=== PATIENT | female | born 1990 | race Caucasian/White ===

== ENCOUNTER 2016-11-13 18:06 | Emergency (ER) | payer OTHER ==
[2016-11-13] MEDS ORDERED: ALBUTEROL SULFATE 2.5 MG/0.5 ML INH NEB SOLN As Ordered ONE (20:38)
[2016-11-13 20:42] LABS: BASO % 0.2 % (0.0-1.0); EOS # 0.2 K/mm3 (0.0-0.50); EOS % 2.2 % (0.0-3.0); LARGE UNSTAINED CELL # 0.1 K/mm3 (0.0-0.4); LARGE UNSTAINED CELL % 0.6 % (0.0-4.0); LYMPH # 0.8 K/mm3 (1.5-6.5); MEAN CORPUSCULAR HEMOGLOBIN 28.6 pg (27.0-33.0); MEAN CORPUSCULAR HGB CONC 33.4 g/dl (32.0-36.5); MEAN CORPUSCULAR VOLUME 85.6 fl (80.0-96.0); MONO # 0.4 K/mm3 (0.0-0.8); MONO % 3.5 % (0.0-5.0); NEUTROPHILS # 8.9 K/mm3 (1.8-7.7); NEUTROPHILS % 85.6 % (36.0-66.0); PLATELET COUNT, AUTOMATED 214 k/mm3 (150-450); RED CELL DISTRIBUTION WIDTH 12.3 % (11.5-14.5); WHITE BLOOD COUNT 10.3 K/mm3 (4.0-10.0)
[2016-11-13 21:11] LABS: ANION GAP 7 MEQ/L (8-16); BLOOD UREA NITROGEN 4 MG/DL (7-18); CALCIUM LEVEL 9.2 MG/DL (8.5-10.1); CARBON DIOXIDE LEVEL 28 MEQ/L (21-32); CHLORIDE LEVEL 108 MEQ/L (98-107); CREATININE FOR GFR 0.73 MG/DL (0.55-1.02); GLOMERULAR FILTRATION RATE > 60.0 (>60); GLUCOSE, FASTING 87 MG/DL (70-105); POTASSIUM SERUM 3.9 MEQ/L (3.5-5.1); SODIUM LEVEL 143 MEQ/L (136-145)
[2016-11-13] MEDS ORDERED: ALBUTEROL 90 MCG/ACT 8GM HFA INHALER As Ordered ONE (22:27)
[2016-11-13] MEDS ORDERED: AZITHROMYCIN 250 MG TAB As Ordered ONE (22:27)
--- NOTE | 2016-11-13 22:36 | EDDOCDS ---
Physician Documentation [facility] Name: Rachelle Pagan Age: 26 yrs Sex: Female : 1990 Arrival Date: 11/13/2016 Time: 18:06 Bed I4 / M4 Private MD: GEMMA Osborn Disposition: 11/13/16 22:25 Discharged to Home/Self Care. Impression: Acute bronchitis. - Condition is Stable. - Discharge Instructions: Acute Bronchitis. - Prescriptions for Zithromax 250 mg Oral Tablet - take 1 tablet by ORAL route once daily start tomorrow; 4 tablet. Albuterol Sulfate 90 mcg/actuation Inhalation HFA Aerosol Inhaler - inhale 2 puff by INHALATION route every 4 hours As needed; 1 Inhaler. - Medication Reconciliation, Local Pharmacy Hours form. - Follow up: GEMMA Osborn; When: 1 - 2 days; Reason: Recheck today's complaints, Continuance of care. - Problem is new. - Symptoms have improved. Historical: - Allergies: SULFA (SULFONAMIDES); - Home Meds: 1. ibuprofen 600 mg Oral tab 1 tab 4 times per day 2. Vitamin D Oral 1,000 unit daily 3. Vitamin B-12 1,000 mcg Oral lozg 4. tumeric daily - PMHx: none; - PSHx: egd; - Social history: Smoking status: Patient states was never smoker of tobacco. No barriers to communication noted, The patient speaks fluent Belarusian, Speaks appropriately for age. - Family history: Not pertinent. - : The pt / caregiver states he / she is not on anticoagulants. Home medication list is obtained from the patient. - Exposure Risk Screening:: None identified. 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 6 in. (167.64 cm) (R); Pain 0/10; 22:35 BP 116 / 57; Pulse 75; Resp 20 S; Temp 98.1(O); Pulse Ox 100% on R/A; Pain 2/10; ms2 18:07 Body Mass Index 21.79 (61.23 kg, 167.64 cm) elp MDM: 20:14 -Blood Culture (Adults Only), peripheral from different site, or from device/port/PICC ck7 etc. if present ordered. 20:14 Albuterol 2.5 mg Nebulizer once ordered. ck7 20:14 Call Respiratory ordered. ck7 20:15 Chest, 2 View (pa\E\lat) Ordered. EDMS 20:15 CBC with Diff Ordered. EDMS 20:15 MED Profile Ordered. EDMS 20:15 -Blood Culture Ordered. EDMS 20:15 Cardiac Marker Panel Ordered. EDMS 20:15 D-Dimer Quant Ordered. EDMS 20:15 ECG WITH READING ER PHYS+CARDIAG ordered. EDMS 20:16 -Blood Culture (Adults Only), peripheral from different site, or from device/port/PICC ajs etc. if present complete. 20:16 Strep Screen, Nursing ordered. ck7 20:17 BLOOD CULTURES Ordered. EDMS 20:32 Call Respiratory complete. ajs 20:45 GATS (NEGATIVE STREP SCREEN) Ordered. EDMS 20:49 Financial registration complete. ks16 20:58 [facility] Payment Agreement was scanned into [employer] and attached to record. ks16 22:00 CBC with Diff Reviewed. ck7 22:00 MED Profile Reviewed. ck7 22:00 Cardiac Marker Panel Reviewed. ck7 22:00 D-Dimer Quant Reviewed. ck7 22:25 azithromycin 500 mg PO once ordered. ck7 22:25 Ventolin Inhaler 2 puffs Inhalation once ordered. ck7 Administered Medications: 20:42 Drug: Albuterol 2.5 mg [albuterol sulfate 2.5 mg/0.5 mL solution for nebulization (0.5 rs5 mL)] Route: Nebulizer; 22:34 Drug: azithromycin 500 mg [azithromycin 250 mg tablet (2 tabs)] Route: PO; ms2 22:34 Drug: Ventolin 2 puffs [Ventolin HFA 90 mcg/actuation aerosol inhaler (2 puffs)] {Note: ms2 inhaler dispensed to pt --pt declines to use presently.} Route: Inhalation; Signatures: Dispatcher Med[employer] EDMS Sebastian King RN RN ms2 Trixie Alvarez ajManuel Rodríguez RPA-C RPA-Cck7 Manas Allen,RN RN Kajal Staley, Reg Reg ks16 Tigre Hayward RT rs5 The chart was reviewed and I authenticate all verbal orders and agree with the evaluation and treatment provided.Attachments: 20:58 [facility] Payment Agreement ks16 MTDD
--- NOTE | 2016-11-13 22:36 | EDDOCDS ---
Nurse's Notes [facility] Name: Rachelle Pagan Age: 26 yrs Sex: Female : 1990 Arrival Date: 11/13/2016 Time: 18:06 Bed I4 / M4 Private MD: Irena [facility] Diagnosis: Acute bronchitis Presentation: 11/13 18:14 Presenting complaint: Patient states: Patient reports sore throat yesterday but having jmb difficulty breathing with fever and chills today. History of pneumonia. Adult Sepsis Screening: The patient does not have new or worsening altered mentation. Patient's respiratory rate is less than 22. Systolic blood pressure is greater than 100. Patient has a qSOFA score of 0- Negative Sepsis Screen. Suicide/Homicide risk assessment- the patient denies having any suicidal and/or homicidal ideations and does not present with any other emotional, behavioral or mental health complaints. 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 Transition of care: patient was not received from another setting of care. 18:14 Acuity: IVY Level 4 [facility] 18:14 Method Of Arrival: Walkin/Carried/Asstd [facility] Triage Assessment: 18:16 General: Appears in no apparent distress, Behavior is appropriate for age, cooperative. b Pain: Denies pain. HIV screening NA for this visit Offered previously. Neurological: Level of Consciousness is awake, alert, obeys commands, Oriented to person, place, time. Respiratory: Onset: The symptoms/episode began/occurred gradually, Airway is patent Respiratory effort is even, Respiratory pattern is regular. Derm: Skin is pink, warm & dry. Musculoskeletal: Range of motion intact in all extremities. 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 ibuprofen 600 mg Oral tab 1 tab 4 times per day 2. Vitamin D Oral 1,000 unit daily 3. Vitamin B-12 1,000 mcg Oral lozg 4. tumeric daily - PMHx: none; - PSHx: egd; - Social history: Smoking status: Patient states was never smoker of tobacco. No barriers to communication noted, The patient speaks fluent Bahraini, Speaks appropriately for age. - Family history: Not pertinent. - : The pt / caregiver states he / she is not on anticoagulants. Home medication list is obtained from the patient. - Exposure Risk Screening:: None identified. Screenin:50 Screening information is obtained from the patient. Fall risk: No risks identified. af2 Assistance ADL's: requires no assistance with activities of daily living. Abuse/DV Screen: The patient / caregiver reports he/she is: not in a situation that causes fear, pain or injury. Nutritional screening: No deficits noted. Advance Directives: Currently, there is no health care proxy. home support is adequate. Assessment: 20:49 General: Appears in no apparent distress, comfortable, Behavior is appropriate for age, af2 cooperative. Neurological: Level of Consciousness is awake, alert, obeys commands. Cardiovascular: Heart tones S1 S2 present. Respiratory: Airway is patent Respiratory effort is even, unlabored, Breath sounds with wheezes bilaterally. Derm: Skin is normal. 21:53 General: Appears in no apparent distress, comfortable, Behavior is appropriate for age, af2 cooperative. Neurological: Level of Consciousness is awake, alert. Respiratory: Airway is patent Respiratory effort is even, unlabored. Derm: No deficits noted. 22:34 Adult Sepsis Screening: Patient has new or worsening altered mentation (1 point). ms2 Patient's respiratory rate is less than 22. Systolic blood pressure is greater than 100. Patient has a qSOFA score of 0- Negative Sepsis Screen. General: Appears in no apparent distress. Neurological: Level of Consciousness is awake, alert, obeys commands. Respiratory: No deficits noted. Airway is patent Respiratory effort is even, unlabored. Derm: Skin is pink, warm & dry. Musculoskeletal: Range of motion intact in all extremities. Vital Signs: 18:07 BP 135 / 73; Pulse 96; Resp 18; Temp 98.1(O); Pulse Ox 100% on R/A; Weight 61.23 kg elp (R); Height 5 ft. 6 in. (167.64 cm) (R); Pain 0/10; 22:35 BP 116 / 57; Pulse 75; Resp 20 S; Temp 98.1(O); Pulse Ox 100% on R/A; Pain 2/10; ms2 18:07 Body Mass Index 21.79 (61.23 kg, 167.64 cm) elp Vitals: 18:07 Log In Time: November 13, 2016 at 18:05. elp 20:44 Strep Screen is obtained and tested: Negative, a GATSNEG culture is ordered in [facility] af2 and sent. ED Course: 18:07 Patient visited by Donna Fortune PCA. elp 18:07 Irena [facility] is Private Physician. elp 18:07 Patient moved to Waiting elp 18:08 Patient visited by Donna Fortune PCA. elp 18:08 Patient moved to Pre RCE elp 18:15 Triage Initiated jmb 19:33 Patient moved to Triage 2 ms18 20:00 Manuel Howell RPA-C is PHCP. ck7 20:00 Mau Moore DO is Attending Physician. ck7 20:00 Patient visited by Manuel Howell RPA-C. ck7 20:15 Patient moved to I4 / M4 jmb 20:30 Patient visited by Manuel Howell RPA-C. ck7 20:32 D-Dimer Quant Sent. ajs 20:32 MED Profile Sent. ajs 20:32 CBC with Diff Sent. ajs 20:32 -Blood Culture Sent. ajs 20:43 Patient visited by Trixie Alvarez. ajs 20:43 BLOOD CULTURES Sent. ajs 20:43 EKG done. (by ED staff). Reviewed by Manuel BIRD. ajs 20:50 Patient visited by Caroline Gardner RN. af2 20:50 GATS (NEGATIVE STREP SCREEN) Sent. ajs 20:58 [facility] Payment Agreement was scanned into [employer] and attached to record. ks16 21:24 Patient visited by Caroline Gardner RN. af2 21:53 Patient visited by Caroline Gardner RN. af2 22:24 Osborn, [facility] is Referral Physician. ck7 22:25 Patient visited by Sebastian King,JANICE. ms2 22:33 Patient visited by Sebastian King,JANICE. ms2 22:35 The patient / caregiver is instructed regarding the plan of care and ED course. ms2 22:35 No IV's were initiated during this patient's visit. No procedures done that require ms2 assistance. Administered Medications: 20:42 Drug: Albuterol 2.5 mg [albuterol sulfate 2.5 mg/0.5 mL solution for nebulization (0.5 rs5 mL)] Route: Nebulizer; 22:34 Drug: azithromycin 500 mg [azithromycin 250 mg tablet (2 tabs)] Route: PO; ms2 22:34 Drug: Ventolin 2 puffs [Ventolin HFA 90 mcg/actuation aerosol inhaler (2 puffs)] {Note: ms2 inhaler dispensed to pt --pt declines to use presently.} Route: Inhalation; RT: 20:42 Initial Med Neb Given as ordered Patient was instructed and evaluated on procedure rs5 Patient tolerated procedure well without adverse effect. Respiratory: Respiratory effort is even, unlabored, Respiratory pattern is regular symmetrical, Breath sounds are diminished bilaterally. Reports cough that is non-productive. Order Results: Lab Order: CBC with Diff; SPEC'M 11/13/16 20:32 Test: WHITE BLOOD COUNT; Value: 10.3; Range: 4.0-10.0; Abnormal: Above high normal; Units: K/mm3; Status: F Test: RED BLOOD COUNT; Value: 4.65; Range: 4.00-5.40; Units: M/mm3; Status: F Test: HEMOGLOBIN; Value: 13.3; Range: 12.0-16.0; Units: g/dl; Status: F Test: HEMATOCRIT; Value: 39.8; Range: 36.0-47.0; Units: %; Status: F Test: MEAN CORPUSCULAR VOLUME; Value: 85.6; Range: 80.0-96.0; Units: fl; Status: F Test: MEAN CORPUSCULAR HEMOGLOBIN; Value: 28.6; Range: 27.0-33.0; Units: pg; Status: F Test: MEAN CORPUSCULAR HGB CONC; Value: 33.4; Range: 32.0-36.5; Units: g/dl; Status: F Test: RED CELL DISTRIBUTION WIDTH; Value: 12.3; Range: 11.5-14.5; Units: %; Status: F Test: PLATELET COUNT, AUTOMATED; Value: 214; Range: 150-450; Units: k/mm3; Status: F Test: NEUTROPHILS %; Value: 85.6; Range: 36.0-66.0; Abnormal: Above high normal; Units: %; Status: F Test: LYMPH %; Value: 8.0; Range: 24.0-44.0; Abnormal: Below low normal; Units: %; Status: F Test: MONO %; Value: 3.5; Range: 0.0-5.0; Units: %; Status: F Test: EOS %; Value: 2.2; Range: 0.0-3.0; Units: %; Status: F Test: BASO %; Value: 0.2; Range: 0.0-1.0; Units: %; Status: F Test: LARGE UNSTAINED CELL %; Value: 0.6; Range: 0.0-4.0; Units: %; Status: F Test: NEUTROPHILS #; Value: 8.9; Range: 1.8-7.7; Abnormal: Above high normal; Units: K/mm3; Status: F Test: LYMPH #; Value: 0.8; Range: 1.5-6.5; Abnormal: Below low normal; Units: K/mm3; Status: F Test: MONO #; Value: 0.4; Range: 0.0-0.8; Units: K/mm3; Status: F Test: EOS #; Value: 0.2; Range: 0.0-0.50; Units: K/mm3; Status: F Test: BASO #; Value: 0.0; Range: 0.0-0.2; Units: K/mm3; Status: F Test: LARGE UNSTAINED CELL #; Value: 0.1; Range: 0.0-0.4; Units: K/mm3; Status: F Lab Order: [facility]; SPEC'M 11/13/16 20:32 Test: GLUCOSE, FASTING; Value: 87; Range: 70-105; Units: MG/DL; Status: F Test: BLOOD UREA NITROGEN; Value: 4; Range: 7-18; Abnormal: Below low normal; Units: MG/DL; Status: F Test: CREATININE FOR GFR; Value: 0.73; Range: 0.55-1.02; Units: MG/DL; Status: F Test: GLOMERULAR FILTRATION RATE; Value: > 60.0; Range: >60; Status: F Test: SODIUM LEVEL; Value: 143; Range: 136-145; Units: MEQ/L; Status: F Test: POTASSIUM SERUM; Value: 3.9; Range: 3.5-5.1; Units: MEQ/L; Status: F Test: CHLORIDE LEVEL; Value: 108; Range: 98-107; Abnormal: Above high normal; Units: MEQ/L; Status: F Test: CARBON DIOXIDE LEVEL; Value: 28; Range: 21-32; Units: MEQ/L; Status: F Test: ANION GAP; Value: 7; Range: 8-16; Abnormal: Below low normal; Units: MEQ/L; Status: F Test: CALCIUM LEVEL; Value: 9.2; Range: 8.5-10.1; Units: MG/DL; Status: F Test Note: ; Units are mL/min/1.73 m2 Chronic Kidney Disease Staging per NKF: Stage I & II GFR >=60 Normal to Mildly Decreased Stage III GFR 30-59 Moderately Decreased Stage IV GFR 15-29 Severely Decreased Stage V GFR <15 Very Little GFR Left ESRD GFR <15 on MORTGAGE LOAN FUNDER Lab Order: Cardiac Marker Panel; SPEC'M 11/13/16 20:32 Test: CPK CREATINE PHOSPHOKINASE; Value: 336; Range: 26-192; Abnormal: Above high normal; Units: U/L; Status: F Test: CK-MB VALUE MASS; Value: 1.0; Range: 0.0-3.6; Units: NG/ML; Status: F Test: MB/CK RELATIVE INDEX; Value: 0.29; Range: < OR =4; Status: F Test: TROPONIN I; Value: < 0.02; Range: < 0.10; Units: NG/ML; Status: F Test Note: ; DIAGNOSIS CRITERIA MMB ng/ml Relative Index (RI) NON-AMI < or = 5 N/A KHALIL ZONE > 5 < or = 4 AMI > 5 > 4 Lab Order: D-Dimer Quant; SPEC'M 11/13/16 20:32 Test: D-DIMER QUANT; Value: < 270.0; Range: <500; Units: ng/ml; Status: F Outcome: 22:25 Discharge ordered by Provider. ck7 22:35 Discharge Assessment: patient administered narcotics - no. The following High Risk ms2 Discharge criteria are identified: None. Discharged to home ambulatory. Condition: stable. Discharge instructions given to patient, Instructed on discharge instructions, follow up and referral plans. medication usage, Demonstrated understanding of instructions, medications, Pt was receptive of discharge instructions/ teaching. Prescriptions given X 2 faxed. No special radiology studies were completed. Property sent home with patient. 22:36 Patient left the ED. ms2 Signatures: Sebastian King,RN RN ms2 Trixie Alvarez Richard,RT RT rs5 Manuel Howell, RPA-C RPA-Cck7 Donna Fortune, JADA LIBRARY ATTENDANT Manas Adams,RN RN Marlee Snow RN RN ms18 Caroline GardnerRN RN af2 Kajal Gamino, Reg Reg ks16 MTDD
--- NOTE | 2016-11-14 07:35 | ECGEPIP ---
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
--- NOTE | 2016-11-14 08:25 | REP ---
Clinical: Shortness of breath . Comparison: None . Technique: PA and lateral. Findings: The mediastinum and cardiac silhouette are normal. The lung [place] are clear and without acute consolidation, effusion, or pneumothorax. The skeletal structures are intact and normal. Impression: 1. No acute cardiopulmonary process. Signed by Blair Gonzalez MD 11/14/2016 08:16 A
--- NOTE | 2016-11-15 23:37 | EDDOCDS ---
Physician Documentation [facility] Name: Rachelle Pagan Age: 26 yrs Sex: Female : 1990 Arrival Date: 11/13/2016 Time: 18:06 Bed I4 / M4 Private MD: GEMMA Osborn Disposition: 11/13/16 22:25 Discharged to Home/Self Care. Impression: Acute bronchitis. - Condition is Stable. - Discharge Instructions: Acute Bronchitis. - Prescriptions for Zithromax 250 mg Oral Tablet - take 1 tablet by ORAL route once daily start tomorrow; 4 tablet. Albuterol Sulfate 90 mcg/actuation Inhalation HFA Aerosol Inhaler - inhale 2 puff by INHALATION route every 4 hours As needed; 1 Inhaler. - Medication Reconciliation, Local Pharmacy Hours form. - Follow up: GEMMA Osborn; When: 1 - 2 days; Reason: Recheck today's complaints, Continuance of care. - Problem is new. - Symptoms have improved. Historical: - Allergies: SULFA (SULFONAMIDES); - Home Meds: 1. ibuprofen 600 mg Oral tab 1 tab 4 times per day 2. Vitamin D Oral 1,000 unit daily 3. Vitamin B-12 1,000 mcg Oral lozg 4. tumeric daily - PMHx: none; - PSHx: egd; - Social history: Smoking status: Patient states was never smoker of tobacco. No barriers to communication noted, The patient speaks fluent Finnish, Speaks appropriately for age. - Family history: Not pertinent. - : The pt / caregiver states he / she is not on anticoagulants. Home medication list is obtained from the patient. - Exposure Risk Screening:: None identified. 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 6 in. (167.64 cm) (R); Pain 0/10; 22:35 BP 116 / 57; Pulse 75; Resp 20 S; Temp 98.1(O); Pulse Ox 100% on R/A; Pain 2/10; ms2 18:07 Body Mass Index 21.79 (61.23 kg, 167.64 cm) elp MDM: 20:14 -Blood Culture (Adults Only), peripheral from different site, or from device/port/PICC ck7 etc. if present ordered. 20:14 Albuterol 2.5 mg Nebulizer once ordered. ck7 20:14 Call Respiratory ordered. ck7 20:15 Chest, 2 View (pa\E\lat) Ordered. EDMS 20:15 CBC with Diff Ordered. EDMS 20:15 MED Profile Ordered. EDMS 20:15 -Blood Culture Ordered. EDMS 20:15 Cardiac Marker Panel Ordered. EDMS 20:15 D-Dimer Quant Ordered. EDMS 20:15 ECG WITH READING ER PHYS+CARDIAG ordered. EDMS 20:16 -Blood Culture (Adults Only), peripheral from different site, or from device/port/PICC ajs etc. if present complete. 20:16 Strep Screen, Nursing ordered. ck7 20:17 BLOOD CULTURES Ordered. EDMS 20:32 Call Respiratory complete. ajs 20:45 GATS (NEGATIVE STREP SCREEN) Ordered. EDMS 20:49 Financial registration complete. ks16 20:58 [facility] Payment Agreement was scanned into [employer] and attached to record. ks16 22:00 CBC with Diff Reviewed. ck7 22:00 MED Profile Reviewed. ck7 22:00 Cardiac Marker Panel Reviewed. ck7 22:00 D-Dimer Quant Reviewed. ck7 22:25 azithromycin 500 mg PO once ordered. ck7 22:25 Ventolin Inhaler 2 puffs Inhalation once ordered. [facility] 11/14 08:10 T-Sheet-- Draft Copy was scanned into [employer] and attached to record. [facility] 11/15 09:08 ECG/EKG was scanned into [employer] and attached to record. gb Administered Medications: 11/13 20:42 Drug: Albuterol 2.5 mg [albuterol sulfate 2.5 mg/0.5 mL solution for nebulization (0.5 rs5 mL)] Route: Nebulizer; 22:34 Drug: azithromycin 500 mg [azithromycin 250 mg tablet (2 tabs)] Route: PO; ms2 22:34 Drug: Ventolin 2 puffs [Ventolin HFA 90 mcg/actuation aerosol inhaler (2 puffs)] {Note: ms2 inhaler dispensed to pt --pt declines to use presently.} Route: Inhalation; Signatures: Dispatcher [employer] Sebastian Barger,RN RN ms2 Opal Gilmore, Reg Reg gb Trixie Alvarez Christopher, RPA-C RPA-Cck7 Manas AllenRN RN Kajal Staley, Reg Reg ks16 Rubi Johnston Richard RT rs5 The chart was reviewed and I authenticate all verbal orders and agree with the evaluation and treatment provided.Attachments: 20:58 [facility] Payment Agreement ks11/14 08:10 T-Sheet-- Draft Copy [facility] 11/15 09:08 ECG/EKG gb Chart Complete MTDD
--- NOTE | 2016-11-15 23:37 | EDDOCDS ---
Physician Documentation [facility] Name: Rachelle Pagan Age: 26 yrs Sex: Female : 1990 Arrival Date: 11/13/2016 Time: 18:06 Bed I4 / M4 Private MD: GEMMA Osborn Disposition: 11/13/16 22:25 Discharged to Home/Self Care. Impression: Acute bronchitis. - Condition is Stable. - Discharge Instructions: Acute Bronchitis. - Prescriptions for Zithromax 250 mg Oral Tablet - take 1 tablet by ORAL route once daily start tomorrow; 4 tablet. Albuterol Sulfate 90 mcg/actuation Inhalation HFA Aerosol Inhaler - inhale 2 puff by INHALATION route every 4 hours As needed; 1 Inhaler. - Medication Reconciliation, Local Pharmacy Hours form. - Follow up: GEMMA Osborn; When: 1 - 2 days; Reason: Recheck today's complaints, Continuance of care. - Problem is new. - Symptoms have improved. Historical: - Allergies: SULFA (SULFONAMIDES); - Home Meds: 1. ibuprofen 600 mg Oral tab 1 tab 4 times per day 2. Vitamin D Oral 1,000 unit daily 3. Vitamin B-12 1,000 mcg Oral lozg 4. tumeric daily - PMHx: none; - PSHx: egd; - Social history: Smoking status: Patient states was never smoker of tobacco. No barriers to communication noted, The patient speaks fluent [place], Speaks appropriately for age. - Family history: Not pertinent. - : The pt / caregiver states he / she is not on anticoagulants. Home medication list is obtained from the patient. - Exposure Risk Screening:: None identified. 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 6 in. (167.64 cm) (R); Pain 0/10; 22:35 BP 116 / 57; Pulse 75; Resp 20 S; Temp 98.1(O); Pulse Ox 100% on R/A; Pain 2/10; ms2 18:07 Body Mass Index 21.79 (61.23 kg, 167.64 cm) elp MDM: 20:14 -Blood Culture (Adults Only), peripheral from different site, or from device/port/PICC ck7 etc. if present ordered. 20:14 Albuterol 2.5 mg Nebulizer once ordered. ck7 20:14 Call Respiratory ordered. ck7 20:15 Chest, 2 View (pa\E\lat) Ordered. EDMS 20:15 CBC with Diff Ordered. EDMS 20:15 MED Profile Ordered. EDMS 20:15 -Blood Culture Ordered. EDMS 20:15 Cardiac Marker Panel Ordered. EDMS 20:15 D-Dimer Quant Ordered. EDMS 20:15 ECG WITH READING ER PHYS+CARDIAG ordered. EDMS 20:16 -Blood Culture (Adults Only), peripheral from different site, or from device/port/PICC ajs etc. if present complete. 20:16 Strep Screen, Nursing ordered. ck7 20:17 BLOOD CULTURES Ordered. EDMS 20:32 Call Respiratory complete. ajs 20:45 GATS (NEGATIVE STREP SCREEN) Ordered. EDMS 20:49 Financial registration complete. ks16 20:58 [facility] Payment Agreement was scanned into [email or web address] and attached to record. ks16 22:00 CBC with Diff Reviewed. ck7 22:00 MED Profile Reviewed. ck7 22:00 Cardiac Marker Panel Reviewed. ck7 22:00 D-Dimer Quant Reviewed. ck7 22:25 azithromycin 500 mg PO once ordered. ck7 22:25 Ventolin Inhaler 2 puffs Inhalation once ordered. [facility] 11/14 08:10 T-Sheet-- Draft Copy was scanned into [email or web address] and attached to record. [facility] 11/15 09:08 ECG/EKG was scanned into [email or web address] and attached to record. gb Administered Medications: 11/13 20:42 Drug: Albuterol 2.5 mg [albuterol sulfate 2.5 mg/0.5 mL solution for nebulization (0.5 rs5 mL)] Route: Nebulizer; 22:34 Drug: azithromycin 500 mg [azithromycin 250 mg tablet (2 tabs)] Route: PO; ms2 22:34 Drug: Ventolin 2 puffs [Ventolin HFA 90 mcg/actuation aerosol inhaler (2 puffs)] {Note: ms2 inhaler dispensed to pt --pt declines to use presently.} Route: Inhalation; Signatures: Dispatcher [employer] Sebastian Barger,RN RN ms2 Opal Gilmore, Reg Reg gb Trixie Alvarez Christopher, RPA-C RPA-Cck7 Manas AllenRN RN Kajal Staley, Reg Reg ks16 Rubi Johnston Richard RT rs5 The chart was reviewed and I authenticate all verbal orders and agree with the evaluation and treatment provided.Attachments: 20:58 [facility] Payment Agreement ks11/14 08:10 T-Sheet-- Draft Copy [facility] 11/15 09:08 ECG/EKG gb Chart Complete MTDD
--- NOTE | 2016-11-15 23:37 | EDDOCDS ---
Nurse's Notes [facility] [facility] Name: Rachelle Bond Age: 26 yrs Sex: Female : 1990 Arrival Date: 11/13/2016 Time: 18:06 Bed I4 / M4 Private MD: Irena [facility] Diagnosis: Acute bronchitis Presentation: 11/13 18:14 Presenting complaint: Patient states: Patient reports sore throat yesterday but having jmb difficulty breathing with fever and chills today. History of pneumonia. Adult Sepsis Screening: The patient does not have new or worsening altered mentation. Patient's respiratory rate is less than 22. Systolic blood pressure is greater than 100. Patient has a qSOFA score of 0- Negative Sepsis Screen. Suicide/Homicide risk assessment- the patient denies having any suicidal and/or homicidal ideations and does not present with any other emotional, behavioral or mental health complaints. 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 Transition of care: patient was not received from another setting of care. 18:14 Acuity: IVY Level 4 [facility] 18:14 Method Of Arrival: Walkin/Carried/Asstd [facility] Triage Assessment: 18:16 General: Appears in no apparent distress, Behavior is appropriate for age, cooperative. b Pain: Denies pain. HIV screening NA for this visit Offered previously. Neurological: Level of Consciousness is awake, alert, obeys commands, Oriented to person, place, time. Respiratory: Onset: The symptoms/episode began/occurred gradually, Airway is patent Respiratory effort is even, Respiratory pattern is regular. Derm: Skin is pink, warm & dry. Musculoskeletal: Range of motion intact in all extremities. 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 ibuprofen 600 mg Oral tab 1 tab 4 times per day 2. Vitamin D Oral 1,000 unit daily 3. Vitamin B-12 1,000 mcg Oral lozg 4. tumeric daily - PMHx: none; - PSHx: egd; - Social history: Smoking status: Patient states was never smoker of tobacco. No barriers to communication noted, The patient speaks fluent Togolese, Speaks appropriately for age. - Family history: Not pertinent. - : The pt / caregiver states he / she is not on anticoagulants. Home medication list is obtained from the patient. - Exposure Risk Screening:: None identified. Screenin:50 Screening information is obtained from the patient. Fall risk: No risks identified. af2 Assistance ADL's: requires no assistance with activities of daily living. Abuse/DV Screen: The patient / caregiver reports he/she is: not in a situation that causes fear, pain or injury. Nutritional screening: No deficits noted. Advance Directives: Currently, there is no health care proxy. home support is adequate. Assessment: 20:49 General: Appears in no apparent distress, comfortable, Behavior is appropriate for age, af2 cooperative. Neurological: Level of Consciousness is awake, alert, obeys commands. Cardiovascular: Heart tones S1 S2 present. Respiratory: Airway is patent Respiratory effort is even, unlabored, Breath sounds with wheezes bilaterally. Derm: Skin is normal. 21:53 General: Appears in no apparent distress, comfortable, Behavior is appropriate for age, af2 cooperative. Neurological: Level of Consciousness is awake, alert. Respiratory: Airway is patent Respiratory effort is even, unlabored. Derm: No deficits noted. 22:34 Adult Sepsis Screening: Patient has new or worsening altered mentation (1 point). ms2 Patient's respiratory rate is less than 22. Systolic blood pressure is greater than 100. Patient has a qSOFA score of 0- Negative Sepsis Screen. General: Appears in no apparent distress. Neurological: Level of Consciousness is awake, alert, obeys commands. Respiratory: No deficits noted. Airway is patent Respiratory effort is even, unlabored. Derm: Skin is pink, warm & dry. Musculoskeletal: Range of motion intact in all extremities. Vital Signs: 18:07 BP 135 / 73; Pulse 96; Resp 18; Temp 98.1(O); Pulse Ox 100% on R/A; Weight 61.23 kg elp (R); Height 5 ft. 6 in. (167.64 cm) (R); Pain 0/10; 22:35 BP 116 / 57; Pulse 75; Resp 20 S; Temp 98.1(O); Pulse Ox 100% on R/A; Pain 2/10; ms2 18:07 Body Mass Index 21.79 (61.23 kg, 167.64 cm) elp Vitals: 18:07 Log In Time: November 13, 2016 at 18:05. elp 20:44 Strep Screen is obtained and tested: Negative, a GATSNEG culture is ordered in [facility] af2 and sent. ED Course: 18:07 Patient visited by Donna Fortune PCA. elp 18:07 Irena [facility] is Private Physician. elp 18:07 Patient moved to Waiting elp 18:08 Patient visited by Donna Fortune PCA. elp 18:08 Patient moved to Pre RCE elp 18:15 Triage Initiated jmb 19:33 Patient moved to Triage 2 ms18 20:00 Manuel Howell RPA-C is PHCP. ck7 20:00 Mau Moore DO is Attending Physician. ck7 20:00 Patient visited by Manuel Howell RPA-C. ck7 20:15 Patient moved to I4 / M4 jmb 20:30 Patient visited by Manuel Howell RPA-C. ck7 20:32 D-Dimer Quant Sent. ajs 20:32 MED Profile Sent. ajs 20:32 CBC with Diff Sent. ajs 20:32 -Blood Culture Sent. ajs 20:43 Patient visited by Trixie Alvarez. ajs 20:43 BLOOD CULTURES Sent. ajs 20:43 EKG done. (by ED staff). Reviewed by Manuel BIRD. ajs 20:50 Patient visited by Caroline Gardner RN. af2 20:50 GATS (NEGATIVE STREP SCREEN) Sent. ajs 20:58 [facility] Payment Agreement was scanned into [employer] and attached to record. ks16 21:24 Patient visited by Caroline Gardner RN. af2 21:53 Patient visited by Caroline Gardner RN. af2 22:24 [place], [facility] is Referral Physician. ck7 22:25 Patient visited by Sebastian King,JANICE. ms2 22:33 Patient visited by Sebastian King,JANICE. ms2 22:35 The patient / caregiver is instructed regarding the plan of care and ED course. ms2 22:35 No IV's were initiated during this patient's visit. No procedures done that require ms2 assistance. 11/14 07:59 EKG-ADULT Returned. EDMS 08:10 T-Sheet-- Draft Copy was scanned into [employer] and attached to record. seh 08:33 Chest, 2 View (pa\E\lat) Returned. EDMS 11/15 09:08 ECG/EKG was scanned into [employer] and attached to record. gb Administered Medications: 11/13 20:42 Drug: Albuterol 2.5 mg [albuterol sulfate 2.5 mg/0.5 mL solution for nebulization (0.5 rs5 mL)] Route: Nebulizer; 22:34 Drug: azithromycin 500 mg [azithromycin 250 mg tablet (2 tabs)] Route: PO; ms2 22:34 Drug: Ventolin 2 puffs [Ventolin HFA 90 mcg/actuation aerosol inhaler (2 puffs)] {Note: ms2 inhaler dispensed to pt --pt declines to use presently.} Route: Inhalation; RT: 20:42 Initial Med Neb Given as ordered Patient was instructed and evaluated on procedure rs5 Patient tolerated procedure well without adverse effect. Respiratory: Respiratory effort is even, unlabored, Respiratory pattern is regular symmetrical, Breath sounds are diminished bilaterally. Reports cough that is non-productive. Order Results: Lab Order: CBC with Diff; SPEC'M 11/13/16 20:32 Test: WHITE BLOOD COUNT; Value: 10.3; Range: 4.0-10.0; Abnormal: Above high normal; Units: K/mm3; Status: F Test: RED BLOOD COUNT; Value: 4.65; Range: 4.00-5.40; Units: M/mm3; Status: F Test: HEMOGLOBIN; Value: 13.3; Range: 12.0-16.0; Units: g/dl; Status: F Test: HEMATOCRIT; Value: 39.8; Range: 36.0-47.0; Units: %; Status: F Test: MEAN CORPUSCULAR VOLUME; Value: 85.6; Range: 80.0-96.0; Units: fl; Status: F Test: MEAN CORPUSCULAR HEMOGLOBIN; Value: 28.6; Range: 27.0-33.0; Units: pg; Status: F Test: MEAN CORPUSCULAR HGB CONC; Value: 33.4; Range: 32.0-36.5; Units: g/dl; Status: F Test: RED CELL DISTRIBUTION WIDTH; Value: 12.3; Range: 11.5-14.5; Units: %; Status: F Test: PLATELET COUNT, AUTOMATED; Value: 214; Range: 150-450; Units: k/mm3; Status: F Test: NEUTROPHILS %; Value: 85.6; Range: 36.0-66.0; Abnormal: Above high normal; Units: %; Status: F Test: LYMPH %; Value: 8.0; Range: 24.0-44.0; Abnormal: Below low normal; Units: %; Status: F Test: MONO %; Value: 3.5; Range: 0.0-5.0; Units: %; Status: F Test: EOS %; Value: 2.2; Range: 0.0-3.0; Units: %; Status: F Test: BASO %; Value: 0.2; Range: 0.0-1.0; Units: %; Status: F Test: LARGE UNSTAINED CELL %; Value: 0.6; Range: 0.0-4.0; Units: %; Status: F Test: NEUTROPHILS #; Value: 8.9; Range: 1.8-7.7; Abnormal: Above high normal; Units: K/mm3; Status: F Test: LYMPH #; Value: 0.8; Range: 1.5-6.5; Abnormal: Below low normal; Units: K/mm3; Status: F Test: MONO #; Value: 0.4; Range: 0.0-0.8; Units: K/mm3; Status: F Test: EOS #; Value: 0.2; Range: 0.0-0.50; Units: K/mm3; Status: F Test: BASO #; Value: 0.0; Range: 0.0-0.2; Units: K/mm3; Status: F Test: LARGE UNSTAINED CELL #; Value: 0.1; Range: 0.0-0.4; Units: K/mm3; Status: F Lab Order: [facility] Profile; [facility] 11/13/16 20:32 Test: GLUCOSE, FASTING; Value: 87; Range: 70-105; Units: MG/DL; Status: F Test: BLOOD UREA NITROGEN; Value: 4; Range: 7-18; Abnormal: Below low normal; Units: MG/DL; Status: F Test: CREATININE FOR GFR; Value: 0.73; Range: 0.55-1.02; Units: MG/DL; Status: F Test: GLOMERULAR FILTRATION RATE; Value: > 60.0; Range: >60; Status: F Test: SODIUM LEVEL; Value: 143; Range: 136-145; Units: MEQ/L; Status: F Test: POTASSIUM SERUM; Value: 3.9; Range: 3.5-5.1; Units: MEQ/L; Status: F Test: CHLORIDE LEVEL; Value: 108; Range: 98-107; Abnormal: Above high normal; Units: MEQ/L; Status: F Test: CARBON DIOXIDE LEVEL; Value: 28; Range: 21-32; Units: MEQ/L; Status: F Test: ANION GAP; Value: 7; Range: 8-16; Abnormal: Below low normal; Units: MEQ/L; Status: F Test: CALCIUM LEVEL; Value: 9.2; Range: 8.5-10.1; Units: MG/DL; Status: F Test Note: ; Units are mL/min/1.73 m2 Chronic Kidney Disease Staging per NKF: Stage I & II GFR >=60 Normal to Mildly Decreased Stage III GFR 30-59 Moderately Decreased Stage IV GFR 15-29 Severely Decreased Stage V GFR <15 Very Little GFR Left ESRD GFR <15 on INTERNATIONAL STUDENT COUNSELOR Lab Order: -Blood Culture; SPEC'M 11/13/16 20:32 Test: BLOOD CULTURE; Value: No growth after 24 hours . All specimens observed; Status: F Test: BLOOD CULTURE; Value: for 5 days. Results final at that time.; Status: F Test: BLOOD CULTURE; Value: No Growth after 48 hours. All Specimens observed; Status: F Test: BLOOD CULTURE; Value: for 7 days. Results final at that time.; Status: F Lab Order: Cardiac Marker Panel; SPEC'M 11/13/16 20:32 Test: CPK CREATINE PHOSPHOKINASE; Value: 336; Range: 26-192; Abnormal: Above high normal; Units: U/L; Status: F Test: CK-MB VALUE MASS; Value: 1.0; Range: 0.0-3.6; Units: NG/ML; Status: F Test: MB/CK RELATIVE INDEX; Value: 0.29; Range: < OR =4; Status: F Test: TROPONIN I; Value: < 0.02; Range: < 0.10; Units: NG/ML; Status: F Test Note: ; DIAGNOSIS CRITERIA MMB ng/ml Relative Index (RI) NON-AMI < or = 5 N/A KHALIL ZONE > 5 < or = 4 AMI > 5 > 4 Lab Order: D-Dimer Quant; SPEC'M 11/13/16 20:32 Test: D-DIMER QUANT; Value: < 270.0; Range: <500; Units: ng/ml; Status: F Lab Order: BLOOD CULTURES; SPEC'M 11/13/16 20:32 Test: BLOOD CULTURE; Value: No growth after 24 hours . All specimens observed; Status: F Test: BLOOD CULTURE; Value: for 5 days. Results final at that time.; Status: F Test: BLOOD CULTURE; Value: No Growth after 48 hours. All Specimens observed; Status: F Test: BLOOD CULTURE; Value: for 7 days. Results final at that time.; Status: F Lab Order: GATS (NEGATIVE STREP SCREEN); SPEC'M 11/13/16 20:21 Test: GATS CULTURE (NEG STREP SCR); Value: GATS RESULT NEGATIVE FOR STREP PYOGENES (GROUP A); Status: F Radiology Order: Chest, 2 View (pa\E\lat) Test: Chest, 2 View (pa\E\lat) REASON FOR EXAMINATION: Shortness of Breath; Clinical: Shortness of breath .; ; Comparison: None .; ; Technique: PA and lateral.; ; Findings:; The mediastinum and cardiac silhouette are normal. The lung [place] are clear and; without acute consolidation, effusion, or pneumothorax. The skeletal structures; are intact and normal.; ; Impression:; 1. 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 ck7 22:35 Discharge Assessment: patient administered narcotics - no. The following High Risk ms2 Discharge criteria are identified: None. Discharged to home ambulatory. Condition: stable. Discharge instructions given to patient, Instructed on discharge instructions, follow up and referral plans. medication usage, Demonstrated understanding of instructions, medications, Pt was receptive of discharge instructions/ teaching. Prescriptions given X 2 faxed. No special radiology studies were completed. Property sent home with patient. 22:36 Patient left the ED. ms2 Signatures: Dispatcher [employer] EDMS Sebastian King,RN RN ms2 Opal Gilmore, Reg Reg gb Kim, Tigre Contreras,RT RT rs5 Manuel Howell, RPA-C RPA-Cck7 Donna Fortune, MOTORS AND CONTROLS TESTER MOTORS AND CONTROLS TESTER Manas Adams RN RN jmb Smith, Mallory, RN RN ms18 Caroline GardnerRN RN af2 Kajal Gamino, Reg Reg ks16 Preston, Rubi barraza Chart Complete MTDD
== END 2016-11-13 22:36 | disposition home or self-care (01) ==
LOC: M ED 18:06
DX: J20.9 Acute bronchitis, unspecified (principal); Z79.1 Long term (current) use of non-steroidal anti-inflammatories (NSAID); Z79.899 Other long term (current) drug therapy; Z88.2 Allergy status to sulfonamides

== ENCOUNTER 2017-07-02 10:43 | Emergency (ER) | payer OTHER ==
[~2017-07-02] VITALS: Ht 167.6 cm; Wt 61.4 kg
[2017-07-02 10:45] VITALS: BP 116/70
[2017-07-02 11:55] LABS: BASO % 1.1 % (0.0-1.0); EOS # 0.3 K/mm3 (0.0-0.50); EOS % 7.2 % (0.0-3.0); LARGE UNSTAINED CELL # 0.1 K/mm3 (0.0-0.4); LARGE UNSTAINED CELL % 1.6 % (0.0-4.0); LYMPH % 25.6 % (24.0-44.0); MEAN CORPUSCULAR HEMOGLOBIN 29.2 pg (27.0-33.0); MEAN CORPUSCULAR VOLUME 85.7 fl (80.0-96.0); MONO # 0.2 K/mm3 (0.0-0.8); MONO % 5.5 % (0.0-5.0); NEUTROPHILS # 2.3 K/mm3 (1.8-7.7); NEUTROPHILS % 58.9 % (36.0-66.0); PLATELET COUNT, AUTOMATED 241 k/mm3 (150-450); RED CELL DISTRIBUTION WIDTH 12.5 % (11.5-14.5); WHITE BLOOD COUNT 3.8 K/mm3 (4.0-10.0)
[2017-07-02 12:16] LABS: ALBUMIN 4.3 GM/DL (3.2-5.2); ALBUMIN/GLOBULIN RATIO 1.19 (1.00-1.93); ALKALINE PHOSPHATASE 104 U/L (45-117); ALT/SGPT 19 U/L (12-78); ANION GAP 6 MEQ/L (8-16); AST/SGOT 18 U/L (15-37); BILIRUBIN,DIRECT 0.1 MG/DL (0.0-0.2); BILIRUBIN,TOTAL 0.6 MG/DL (0.2-1.0); BLOOD UREA NITROGEN 7 MG/DL (7-18); CALCIUM LEVEL 9.2 MG/DL (8.5-10.1); CARBON DIOXIDE LEVEL 30 MEQ/L (21-32); CHLORIDE LEVEL 105 MEQ/L (98-107); CREATININE FOR GFR 0.78 MG/DL (0.55-1.02); GLOMERULAR FILTRATION RATE > 60.0 (>60); GLUCOSE, FASTING 99 MG/DL (70-105); POTASSIUM SERUM 4.1 MEQ/L (3.5-5.1); SODIUM LEVEL 141 MEQ/L (136-145); TOTAL PROTEIN 7.9 GM/DL (6.4-8.2)
[2017-07-02 12:17] LABS: METHADONE URINE NEGATIVE (NEGATIVE)
[2017-07-02] MEDS ORDERED: ATIV1TAB10 PO (12:44)
== END 2017-07-02 12:50 | disposition home or self-care (01) ==
LOC: M ED 10:43
DX: M62.838 Other muscle spasm (principal); M54.2 Cervicalgia; Q07.00 Arnold-Chiari syndrome without spina bifida or hydrocephalus; I49.8 Other specified cardiac arrhythmias; Z91.040 Latex allergy status; Z88.1 Allergy status to other antibiotic agents; Z88.2 Allergy status to sulfonamides

== ENCOUNTER 2017-10-20 21:15 | Emergency (ER) | payer OTHER ==
[~2017-10-20] VITALS: Ht 167.6 cm; Wt 145.0 kg
[~2017-10-20 21:15] MED LIST: ATIV1TAB10 PO
[2017-10-20] MEDS ORDERED: IBUP-1022 PO (21:25)
[2017-10-20] MEDS ORDERED: BENA25TA10 PO (21:25)
[2017-10-20] MEDS ORDERED: HYDR-3363 (21:25)
[2017-10-20] MEDS ORDERED: AZIT-12 PO (23:08)
[2017-10-20] MEDS ORDERED: AZITHROMYCIN 250 MG TAB PO ONE (23:15)
[2017-10-20] MEDS ORDERED: IBUPROFEN 600 MG TAB PO ONE (23:15)
[2017-10-20 23:16] VITALS: BP 126/62
--- NOTE | 2017-10-21 01:45 | REP ---
Clinical: Cough and shortness of breath. Comparison: 11/13/2016. Technique: PA and lateral. Findings: The mediastinum and cardiac silhouette are normal. The lung [place] are clear and without acute consolidation, effusion, or pneumothorax. The skeletal structures are intact and normal. Impression: 1. No acute cardiopulmonary process. Signed by Blair Gonzalez MD 10/21/2017 01:36 A
== END 2017-10-20 23:19 | disposition home or self-care (01) ==
LOC: M ED 21:15
DX: J20.9 Acute bronchitis, unspecified (principal); Z79.899 Other long term (current) drug therapy; Z91.040 Latex allergy status; Z88.2 Allergy status to sulfonamides